=== PATIENT | male | born 1945 | race Asian ===

== ENCOUNTER 2019-01-08 12:59 | Observation (INO) | payer OTHER ==
--- OUTSIDE RECORDS SUMMARY | 2019-01-08 13:04 | XMS REPORT | Continuity of Care Document ---
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 EVAL Active 12/31/19 [facility] 18 Cerebral Active 10/01/20 Problem 05/17/2018 [facility] infarction due to 17 unspecified occlusion or stenosis of unspecified cerebral artery I67.89 Active 09/18/20 [facility] 17 CVA Active 08/23/20 [facility] 17 Unspecified 05/17/2018 [facility] symptoms and signs involving cognitive functions following cerebral infarction Dysphagia 05/17/2018 [facility] following cerebral infarction Dysphagia, 05/17/2018 [facility] oropharyngeal phase Diabetes mellitus Active Problem 05/17/2018 [facility] Hyperlipidemia Active Problem 05/17/2018 [facility] Hypertension Active Problem 05/17/2018 [facility] Seizure Resolved Problem 05/17/2018 [facility] Final: Other 09/23/2017 [facility] cerebrovascular disease OTHER Active [facility] CEREBROVASCULAR DISEASE Medications Medication Details Route Status Patient Ordering Order Source Instructions Provider Date Fenofibrate 145 145 mg=1 tab, Active [facility] MG Oral Tablet PO, Dinner, # 017 30 tab, 1 Refill(s) aspirin 81 mg 81 mg=1 tab, Active [facility] tablet, enteric PO, Daily, # 017 coated 30 tab, 1 Refill(s) oxybutynin 5 mg 5 mg=1 tab, Active [facility] oral tablet PO, TID, # 90 017 tab, 1 Refill(s) lisinopril 5 mg 5 mg=1 tab, Active [facility] oral tablet PO, Daily, # 017 30 tab, 1 Refill(s) FLUoxetine 20 mg 20 mg=1 cap, Active [facility] oral capsule PO, Daily, # 017 30 cap, 1 Refill(s) Famotidine 40 MG 40 mg=1 tab, Active [facility] Oral Tablet PO, Daily, # 017 [Pepcid] 30 tab, 1 Refill(s) donepezil 10 mg 10 mg=1 tab, Active [facility] oral tablet PO, Daily, # 017 30 tab, 1 Refill(s) Docusate Sodium 100 mg=1 cap, Active [facility] 100 MG Oral PO, Daily, # 017 Capsule [Colace] 30 cap, 1 Refill(s) Docusate Sodium 283 mg, 5 mL, Inactive [facility] 56.6 MG/ML Enema Route: [place], 017 [Enemeez] Drug form: MELLY, ONCE, Dosing Weight 67.528, kg, Start date: 09/16/17 19:00:00 [employer], Stop date: 09/16/17 19:00:00 CSTNotes: Same as Enemeez Non formulary item Milk of Magnesia 30 ml, Route: Inactive [facility] PO, Drug 017 Form: SUSP, Dosing Weight 67.528, kg, ONCE, Start date: 09/16/17 17:00:00 [employer], Stop date: 09/16/17 17:00:00 CSTNotes: (Same as: Milk of Magnesia, MOM) oxybutynin 5 mg, 1 tab, No Longer [facility] Route: PO, Active 017 Drug form: TAB, TID, Dosing Weight 67.528, kg, Start date: 09/13/17 21:00:00 [employer], Duration: 60 day, Stop date: 11/12/17 13:00:00 CSTNotes: Same as: Ditropan) Zofran 4 mg, 1 tab, No Longer [facility] Route: PO, Active 017 Drug form: TAB, Q8H, Dosing Weight 67.528, kg, PRN Nausea, Start date: 09/13/17 13:54:00 [employer], Duration: 60 day, Stop date: 11/12/17 13:53:00 CSTNotes: (Same as: Zofran) Famotidine 40 MG 40 mg, 1 tab, No Longer [facility] Oral Tablet Route: PO, Active 017 [Pepcid] Drug form: TAB, Daily, Dosing Weight 67.528, kg, Start date: 09/13/17 8:30:00 [employer], Duration: 30 day, Stop date: 10/12/17 8:30:00 [employer] Diclofenac 2 gm, 1 appl, No Longer [facility] Sodium 0.01 Route: TOP, Active 017 MG/MG Topical Drug form: Gel [Voltaren] GEL, QID, Dosing Weight 67.528, kg, PRN Pain Score 1-5, Start date: 09/12/17 18:05:00 [employer], Duration: 30 day, Stop date: 10/12/17 18:04:00 CSTNotes: Same as: Voltaren Gel Non-Formulary Item Famotidine 40 MG 40 mg, 2 tab, No Longer [facility] Oral Tablet Route: PO, Active 017 [Pepcid] Drug form: TAB, Daily, Dosing Weight 67.528, kg, Priority: NOW, Start date: 09/12/17 15:03:00 [employer], Duration: 30 day, Stop date: 10/12/17 8:30:00 CSTNotes: (Same as: Pepcid) Tums 500 mg, 1 No Longer [facility] tab, Route: Active 017 CHEW, Drug form: CHEWTAB, TID, Dosing Weight 67.528, kg, PRN Indigestion, Start date: 09/11/17 13:59:00 [employer], Duration: 30 day, Stop date: 10/11/17 13:58:00 CSTNotes: (Same As: Tums) Calcium Carbonate 500 yx=651 mg elemental calcium Dose= mg calcium carbonate ( mg elemental calcium) Diclofenac 2 gm, 1 appl, No Longer [facility] Sodium 0.01 Route: TOP, Active 017 MG/MG Topical Drug form: Gel [Voltaren] GEL, QID, Dosing Weight 67.528, kg, Start date: 09/11/17 13:00:00 [employer], Duration: 30 day, Stop date: 10/11/17 8:30:00 CSTNotes: Same as: Voltaren Gel Non-Formulary Item Aricept 10 mg, 1 tab, No Longer [facility] Route: PO, Active 017 Drug form: TAB, Daily, Dosing Weight 67.528, kg, Start date: 09/11/17 8:30:00 [employer], Duration: 60 day, Stop date: 11/09/17 8:30:00 CSTNotes: (Same as: Aricept) influenza virus 0.5 mL, No Longer [facility] vaccine, Route: IM, Active 017 inactivated Drug Form: SUSP, ONCALL, Start date: 09/10/17 18:00:00 [employer], Duration: 1 doses or times, Stop date: 09/10/17 21:00:00 CSTNotes: (Same as: Fluzone Quadrivalent, Fluarix Quadrivalent) For 3 years of age and older (0.5 mL IM) Shake well before use oxybutynin 5 mg, 1 tab, No Longer [facility] Route: PO, Active 017 Drug form: TAB, BID, Dosing Weight 67.528, kg, Start date: 09/10/17 13:00:00 [employer], Duration: 60 day, Stop date: 11/08/17 21:00:00 CSTNotes: Same as: Ditropan) Docusate Sodium 100 mg, 1 No Longer [facility] 100 MG Oral cap, Route: Active 017 Capsule [Colace] PO, Drug form: CAP, Daily, Dosing Weight 67.528, kg, Start date: 09/07/17 9:15:00 CDT, Duration: 60 day, Stop date: 11/06/17 8:30:00 CSTNotes: (Same as: Colace) (Do Not Crush) Lidocaine 1 appl, No Longer [facility] Hydrochloride Route: TOP, Active 017 0.005 MG/MG Drug Form: Topical Gel GEL, Dosing Weight 67.528, kg, Q4H, PRN Other -See Comment, Start date: 09/07/17 8:37:00 CDT, Duration: 60 day, Stop date: 11/06/17 8:36:00 [employer], cathNotes: (Same as: Xylocaine Jelly, Anestacon) oxybutynin 5 mg, 1 tab, No Longer [facility] Route: PO, Active 017 Drug form: TAB, TID, Dosing Weight 67.528, kg, Start date: 09/06/17 13:00:00 CDT, Duration: 60 day, Stop date: 11/05/17 8:30:00 CSTNotes: Same as: Ditropan) Streptococcus 0.5 mL, Inactive [facility] pneumoniae Route: IM, 017 serotype 1 Drug Form: capsular antigen INJ, ONCE, diphtheria Start date: [id number] protein 09/04/17 conjugate 17:00:00 CDT, vaccine / Stop date: Streptococcus 09/04/17 pneumoniae 17:00:00 serotype 14 CDTNotes: capsular antigen Shake well diphtheria prior to use [id number] protein (Same as: conjugate Prevnar 13) vaccine / Streptococcus pneumoniae serotype 18C capsular antigen d Lidocaine 1 appl, No Longer [facility] Hydrochloride Route: TOP, Active 017 0.005 MG/MG Dosing Weight Topical Gel 67.528, kg, QID, Start date: 09/04/17 8:30:00 CDT, Duration: 30 day, Stop date: 10/03/17 21:00:00 [employer] Lidocaine 1 appl, No Longer [facility] Hydrochloride Route: TOP, Active 017 0.005 MG/MG Drug Form: Topical Gel GEL, Dosing Weight 67.528, kg, Q4H, Start date: 09/04/17 1:00:00 CDT, Duration: 30 day, Stop date: 10/03/17 21:00:00 CSTNotes: (Same as: Xylocaine Jelly, Anestacon) Aricept 5 mg, 0.5 No Longer [facility] tab, Route: Active 017 PO, Drug form: TAB, Bedtime, Dosing Weight 67.528, kg, Start date: 09/03/17 21:00:00 CDT, Duration: 60 day, Stop date: 11/01/17 21:00:00 CSTNotes: (Same as: Aricept) Fenofibrate 160 160 mg, 1 Inactive [facility] MG Oral Tablet tab, Route: 017 PO, Drug form: TAB, Dinner, kg, Start date: 09/03/17 17:00:00 CDT, Duration: 30 day, Stop date: 10/02/17 17:00:00 [employer] fenofibrate 145 mg, 1 No Longer [facility] tab, Route: Active 017 PO, Drug form: TAB, Dinner, Start date: 09/03/17 17:00:00 CDT, Duration: 30 day, Stop date: 10/02/17 17:00:00 CSTNotes: (Same as: Tricor) Lovenox 40 mg, 0.4 No Longer [facility] mL, Route: Active 017 SUB-Q, Drug form: INJ, Daily, kg, Start date: 09/03/17 8:30:00 CDT, Duration: 30 day, Stop date: 10/02/17 8:30:00 CSTNotes: (Same as: Lovenox) Lisinopril 5 mg, 1 tab, No Longer [facility] Route: PO, Active 017 Drug form: TAB, Daily, kg, Start date: 09/03/17 8:30:00 CDT, Duration: 30 day, Stop date: 10/02/17 8:30:00 CSTNotes: (Same as: Prinivil, Zestril) Aspirin 162 MG 162 mg, 2 No Longer [facility] Enteric Coated tab, Route: Active 017 Tablet PO, Drug form: ECTAB, Daily, kg, Start date: 09/03/17 8:30:00 CDT, Duration: 30 day, Stop date: 10/02/17 8:30:00 CSTNotes: Do not crush or chew. (Same As: Ecotrin) Fluoxetine 20 mg, 1 cap, No Longer [facility] Route: PO, Active 017 Drug form: CAP, Daily, Dosing Weight 67.528, kg, Start date: 09/03/17 8:30:00 CDT, Duration: 30 day, Stop date: 10/02/17 8:30:00 CSTNotes: (Same as: Prozac, Sarafem) Nystatin 100 1 appl, No Longer [facility] UNT/MG Topical Route: TOP, Active 017 Powder QSHIFT, Drug form: PWDR, PRN Diaper Rash, Start date: 09/03/17 1:36:00 CDT, Duration: 30 day, Stop date: 10/03/17 1:35:00 CSTNotes: (Same as:Mycostatin , Nilstat) For external use only. Tylenol 650 mg, 2 No Longer [facility] tab, Route: Active 017 PO, Drug form: TAB, Q6H, Dosing Weight 67.528, kg, PRN Pain 1-3/Temp > 100.4 F, Start date: 09/03/17 0:29:00 CDT, Duration: 30 day, Stop date: 10/03/17 0:28:00 CSTNotes: Do not exceed 4 gm/day. (Same as: Tylenol) Midazolam 5 mg, 1 mL, No Longer [facility] Route: IM, Active 017 Drug form: SOLN, PRN, Dosing Weight 67.528, kg, PRN Seizure, Start date: 09/02/17 23:23:00 CDT, Duration: 30 day, Stop date: 10/02/17 22:22:00 CSTNotes: (Same as: Versed) Max dose 5 mg for patients 40 kg Levetiracetam 1,500 mg, No Longer [facility] Route: IV, Active 017 PRN, Dosing Weight 67.528, kg, PRN Seizure, Start date: 09/02/17 23:23:00 CDT, Duration: 30 day, Stop date: 10/02/17 22:22:00 CSTNotes: Same as Keppra Mix with 100 mL NS, LR or D5W MEDICATION WASTE Product Size: 500 mg Product Wasted: _0__ mg Saline Flush 10 mL, Route: No Longer [facility] 0.9% IVP, Drug Active 017 Form: INJ, Dosing Weight 67.528, kg, PRN, PRN Line Flush, Start date: 09/02/17 23:23:00 CDT, Duration: 30 day, Stop date: 10/02/17 22:22:00 CSTNotes: (Same as: BD Posiflush) Macrogol powder Macrogol No Longer [facility] powder, Active 017 13.125g, PO, Daily, Refill(s) 0 Perindopril Perindopril, No Longer [facility] 2 mg=, PO, Active 017 Daily, Refill(s) 0 Fenofibrate 160 160 mg=1 tab, No Longer [facility] MG Oral Tablet PO, Daily, 0 Active 017 Refill(s) 0.4 ML SUB-Q, Daily, No Longer [facility] Enoxaparin 0 Refill(s) Active 017 sodium 100 MG/ML Prefilled Syringe [Lovenox] Kardegic Kardegic, 160 No Longer [facility] mg=, PO, Active 017 Daily, Refill(s) 0 Allergies, Adverse Reactions, Alerts Substance Category Reaction Severity Reaction Status Date Comments Source type Reported codeine Assertion Drug Active [facility] allergy statins Assertion Drug Active [facility] allergy Immunizations Immunization Date Given Site Status Last Comments Source Updated influenza virus 09/11/2017 Left deltoid completed [place] [facility] vaccine, inactivated Results Order Name Results Value Reference Date Interpretation Comments Source Range CHEM PANEL eGFR 79 09/16 Result Comment: The eGFR is calculated using the CKD-EPI formula. In most young, healthy individuals the eGFR will be >90 mL/ min/1.73m2. The eGFR declines with age. An eGFR of 60-89 may be normal in [facility] mL/min/1.73 /2016 some populations, particularly the elderly, for whom the CKD-EPI formula has not been extensively validated. Use of the eGFR is not recommended in the following populations: m2 Individuals with unstable creatinine concentrations, including patients and those with serious co-morbid conditions. Patients with extremes in muscle mass or diet. The data above are obtained from the National Kidney Disease Education Program (NKDEP) which additionally recommends that when the eGFR is used in patients with extremes of body mass index for purposes of drug dosing, the eGFR should be multiplied by the estimated BMI. CHEM PANEL Alk Phos 63 unit/L 39 - 136 09/16 CHEM PANEL BUN 21 mg/dL 7 - 22 09/16 [facility] CHEM PANEL Creatinine 0.96 mg/dL 0.50 - 09/16 [facility] Lvl 1.40 CHEM PANEL Albumin Lvl 3.3 g/dL 3.5 - 5.0 09/16 [facility] CHEM PANEL Total Protein 6.9 g/dL 6.4 - 8.4 09/16 [facility] CHEM PANEL Bili Total 0.5 mg/dL 0.2 - 1.3 09/16 [facility] CHEM PANEL AST 64 unit/L 0 - 37 09/16 [facility] CHEM PANEL ALT 152 unit/L 0 - 65 09/16 [facility] CHEM PANEL Sodium Lvl 140 meq/L 135 - 145 09/16 [facility] CHEM PANEL Calcium Lvl 9.0 mg/dL 8.5 - 10.5 09/16 [facility] CHEM PANEL Chloride Lvl 104 meq/L 95 - 109 09/16 [facility] CHEM PANEL Potassium Lvl 4.2 meq/L 3.5 - 5.1 09/16 [facility] CHEM PANEL CO2 28 meq/L 24 - 32 09/16 [facility] CHEM PANEL Glucose Lvl 81 mg/dL 70 - 99 09/16 [facility] CHEM PANEL A/G Ratio 0.9 0.7 - 1.6 09/16 [facility] CHEM PANEL Globulin 3.6 g/dL 2.7 - 4.2 09/16 [facility] CHEM PANEL B/C Ratio 22 6 - 25 09/16 [facility] CHEM PANEL AGAP 12.2 meq/L 10.0 - 09/16 [facility] 20.0 HEMATOLOGY MCHC 34.9 g/dL 32.0 - 09/16 [facility] 36.0 HEMATOLOGY MCH 32.4 pg 27.0 - 09/16 [facility] 31.0 HEMATOLOGY RDW 12.8 % 11.5 - 09/16 [facility] 14.5 HEMATOLOGY MCV 92.8 fL 80.0 - 09/16 [facility] 94.0 HEMATOLOGY Platelet 265 K/CMM 133 - 450 09/16 [facility] HEMATOLOGY MPV 7.8 fL 7.4 - 10.4 09/16 [facility] HEMATOLOGY Hgb 15.2 g/dL 14.0 - 09/16 [facility] 18.0 HEMATOLOGY Hct 43.5 % 42.0 - 09/16 [facility] 54.0 /2016 HEMATOLOGY WBC 7.5 K/CMM 3.7 - 10.4 09/16 [facility] HEMATOLOGY RBC 4.69 M/CMM 4.70 - 09/16 [facility] 6.10 HEMATOLOGY Basophils # 0.1 K/CMM 0.0 - 0.2 09/16 [facility] HEMATOLOGY Basophils 1.0 % 0.0 - 1.0 09/16 [facility] HEMATOLOGY Segs-Bands # 4.2 K/CMM 1.5 - 8.1 09/16 [facility] HEMATOLOGY Lymphocytes # 2.0 K/CMM 1.0 - 5.5 09/16 [facility] HEMATOLOGY Eosinophils # 0.4 K/CMM 0.0 - 0.5 09/16 [facility] HEMATOLOGY Monocytes # 0.8 K/CMM 0.0 - 0.8 09/16 [facility] HEMATOLOGY Eosinophils 5.2 % 0.0 - 4.0 09/16 [facility] HEMATOLOGY Lymphocytes 27.2 % 20.0 - 09/16 [facility] 40.0 HEMATOLOGY Segs 56.5 % 45.0 - 09/16 [facility] 75.0 HEMATOLOGY Monocytes 10.1 % 2.0 - 12.0 09/16 [facility] CHEM PANEL eGFR 86 09/13 Result Comment: The eGFR is calculated using the CKD-EPI formula. In most young, healthy individuals the eGFR will be >90 mL/ min/1.73m2. The eGFR declines with age. An eGFR of 60-89 may be normal in mL/min/1.73 /2016 some populations, particularly the elderly, for whom the CKD-EPI formula has not been extensively validated. Use of the eGFR is not recommended in the following populations: m2 Individuals with unstable creatinine concentrations, including patients and those with serious co-morbid conditions. Patients with extremes in muscle mass or diet. The data above are obtained from the National Kidney Disease Education Program (NKDEP) which additionally recommends that when the eGFR is used in patients with extremes of body mass index for purposes of drug dosing, the eGFR should be multiplied by the estimated BMI. CHEM PANEL Bili Total 0.4 mg/dL 0.2 - 1.3 09/13 [facility] CHEM PANEL ALT 136 unit/L 0 - 65 09/13 [facility] CHEM PANEL CO2 27 meq/L 24 - 32 09/13 [facility] CHEM PANEL Calcium Lvl 8.9 mg/dL 8.5 - 10.5 09/13 [facility] CHEM PANEL Total Protein 6.9 g/dL 6.4 - 8.4 09/13 [facility] CHEM PANEL AST 49 unit/L 0 - 37 09/13 [facility] CHEM PANEL Alk Phos 65 unit/L 39 - 136 09/13 CHEM PANEL Glucose Lvl 79 mg/dL 70 - 99 09/13 CHEM PANEL BUN 18 mg/dL 7 - 22 09/13 CHEM PANEL Chloride Lvl 102 meq/L 95 - 109 09/13 CHEM PANEL Potassium Lvl 4.0 meq/L 3.5 - 5.1 09/13 CHEM PANEL Albumin Lvl 3.2 g/dL 3.5 - 5.0 09/13 CHEM PANEL Sodium Lvl 139 meq/L 135 - 145 09/13 CHEM PANEL Creatinine 0.89 mg/dL 0.50 - 09/13 [facility] Lvl 1.40 CHEM PANEL A/G Ratio 0.9 0.7 - 1.6 09/13 CHEM PANEL B/C Ratio 20 6 - 25 09/13 [facility] CHEM PANEL AGAP 14.0 meq/L 10.0 - 09/13 [facility] 20.0 CHEM PANEL Globulin 3.7 g/dL 2.7 - 4.2 09/13 [facility] HEMATOLOGY Segs 56.5 % 45.0 - 09/13 [facility] 75.0 HEMATOLOGY Monocytes 10.7 % 2.0 - 12.0 09/13 [facility] HEMATOLOGY Lymphocytes 26.1 % 20.0 - 09/13 [facility] 40.0 HEMATOLOGY Segs-Bands # 4.2 K/CMM 1.5 - 8.1 09/13 [facility] HEMATOLOGY Basophils 0.9 % 0.0 - 1.0 09/13 [facility] HEMATOLOGY Eosinophils 5.8 % 0.0 - 4.0 09/13 [facility] HEMATOLOGY Lymphocytes # 1.9 K/CMM 1.0 - 5.5 09/13 [facility] HEMATOLOGY Basophils # 0.1 K/CMM 0.0 - 0.2 09/13 [facility] HEMATOLOGY Eosinophils # 0.4 K/CMM 0.0 - 0.5 09/13 [facility] HEMATOLOGY Monocytes # 0.8 K/CMM 0.0 - 0.8 09/13 [facility] HEMATOLOGY Hgb 15.3 g/dL 14.0 - 09/13 [facility] 18.0 HEMATOLOGY Hct 45.6 % 42.0 - 09/13 [facility] 54.0 HEMATOLOGY MCV 94.4 fL 80.0 - 09/13 [facility] 94.0 HEMATOLOGY Platelet 270 K/CMM 133 - 450 09/13 [facility] HEMATOLOGY MPV 8.2 fL 7.4 - 10.4 09/13 [facility] HEMATOLOGY MCHC 33.6 g/dL 32.0 - 09/13 [facility] 36.0 HEMATOLOGY RDW 13.1 % 11.5 - 09/13 [facility] 14.5 HEMATOLOGY MCH 31.7 pg 27.0 - 09/13 [facility] 31.0 HEMATOLOGY RBC 4.83 M/CMM 4.70 - 09/13 [facility] 6.10 HEMATOLOGY WBC 7.5 K/CMM 3.7 - 10.4 09/13 [facility] URINE AND UA <=1.0 mg/dL 0.1 - 1.0 09/12 [facility] STOOL Urobilinogen URINE AND UA Sq Epi None Seen 09/12 [facility] URINE AND UA Nitrite Negative Negative 09/12 [facility] (09/12/17 5:44 PM) URINE AND UA Blood Negative Negative 09/12 [facility] (09/12/17 5:44 PM) URINE AND UA Bili Negative Negative 09/12 [facility] *NA* (09/12/17 5:44 PM) URINE AND UA Ketones Negative Negative 09/12 [facility] mg/dL mg/dL URINE AND UA Glucose Negative Negative 09/12 [facility] mg/dL mg/dL URINE AND UA Protein Negative Negative 09/12 [facility] mg/dL mg/dL URINE AND UA pH 6.5 5.0 - 8.0 09/12 [facility] URINE AND UA Spec Grav 1.016 <=1.030 09/12 [facility] URINE AND UA WBC 2 /HPF 0 - 5 09/12 [facility] URINE AND UA Leuk Est Negative Negative 09/12 [facility] (09/12/17 5:44 PM) URINE AND UA Mucus Few /LPF None Seen 09/12 [facility] /LPF URINE AND UA Turbidity Clear Clear 09/12 [facility] (09/12/17 5:44 PM) URINE AND UA Color Yellow Yellow 09/12 [facility] *NA* (09/12/17 5:44 PM) Esophagus Esophagus BA Modified barium swallow. 09/05 [facility] BA swallow swallow - function function Rehab DX Rehab DX INDICATION: Dysphagia. Status post stroke last month. No previous intramedullary exam. Read by: Dino Fernandez MD Dictated Date/time: 09/05/17 10:14 Electronically Signed by: Dino Fernandez MD 09/05/17 10:21 FINAL REPORT COMPARISON: None. Fluoroscopy time: 1 minute 12 seconds FINDINGS: Modified barium swallow was performed with fluoroscopic guidance provided by the radiology department with the speech pathologist present. The patient was given thin barium by teaspoon as well as self administered thin barium by cup, pudding consistency by teaspoon, and cookie coated with pudding. Normal swallowing present without laryngea l penetration or aspiration. Small amount of residual in the vallecula clears with additional swallows. IMPRESSION: No evidence for penetration or aspiration. See speech pathologist's note for additional findings and recommendations. SL: [id number] URINE AND UA Nitrite Negative Negative 09/05 [facility] (09/04/17 7:29 PM) URINE AND UA WBC null 0 - 5 09/05 [facility] URINE AND UA Leuk Est Negative Negative 09/05 [facility] (09/04/17 7:29 PM) URINE AND UA Sq Epi Occasional Few /LPF 09/05 [facility] /LPF URINE AND UA RBC 1 /HPF 0 - 2 09/05 [facility] URINE AND UA Mucus Few /LPF None Seen 09/05 [facility] STOOL /LPF URINE AND UA <=1.0 mg/dL 0.1 - 1.0 09/05 [facility] ST[facility] Urobilinogen URINE AND UA pH 6.5 5.0 - 8.0 09/05 [facility] URINE AND UA Glucose Negative Negative 09/05 [facility] mg/dL mg/dL URINE AND UA Ketones Negative Negative 09/05 [facility] mg/dL mg/dL URINE AND UA Blood Negative Negative 09/05 [facility] (09/04/17 7:29 PM) URINE AND UA Bili Negative Negative 09/05 [facility] *NA* (09/04/17 7:29 PM) URINE AND UA Color Yellow Yellow 09/05 [facility] *NA* (09/04/17 7:29 PM) URINE AND UA Turbidity Clear Clear 09/05 [facility] (09/04/17 7:29 PM) URINE AND UA Spec Grav 1.009 <=1.030 09/05 [facility] URINE AND UA Protein Negative Negative 09/05 [facility] mg/dL mg/dL URINE AND UA Blood Moderate Negative 09/03 [facility] *ABN* (09/03/17 5:20 AM) URINE AND UA 0.2 EU/dL 0.1 - 1.0 09/03 [facility] STOOL Urobilinogen URINE AND UA Leuk Est Negative Negative 09/03 [facility] (09/03/17 5:20 AM) URINE AND UA Nitrite Negative Negative 09/03 [facility] (09/03/17 5:20 AM) URINE AND UA Ketones Negative Negative 09/03 [facility] *NA* (09/03/17 5:20 AM) URINE AND UA Bili Negative Negative 09/03 [facility] *NA* (09/03/17 5:20 AM) URINE AND UA Color Yellow Yellow 09/03 [facility] *NA* (09/03/17 5:20 AM) URINE AND UA Turbidity Slight Cloudy Clear 09/03 [facility] (09/03/17 5:20 AM) URINE AND UA Spec Grav 1.010 <=1.030 09/03 [facility] URINE AND UA Glucose Negative Negative 09/03 [facility] (09/03/17 5:20 AM) URINE AND UA Protein Negative Negative 09/03 [facility] (09/03/17 5:20 AM) URINE AND UA pH 6.5 5.0 - 8.0 09/03 [facility] URINE AND UA [place] Yeast Occasional None Seen 09/03 [facility] /HPF /HPF /2016 URINE AND UA Bacteria Few /HPF None Seen 09/03 [facility] /HPF URINE AND UA Mucus Few /LPF None Seen 09/03 [facility] /LPF URINE AND UA WBC 3-5 /HPF None Seen 09/03 [facility] /HPF URINE AND UA RBC 11-20 /HPF 0 - 2 09/03 [facility] URINE AND UA Sq Epi None Seen Few 09/03 [facility] (09/03/17 5:20 AM) CHEM PANEL Magnesium Lvl 2.3 mg/dL 1.8 - 2.4 09/03 [facility] CHEM PANEL A/G Ratio 0.9 0.7 - 1.6 09/03 [facility] CHEM PANEL AGAP 11.0 meq/L 10.0 - 09/03 [facility] 20. CHEM PANEL B/C Ratio 16 6 - 25 09/03 [facility] CHEM PANEL Globulin 3.6 g/dL 2.7 - 4.2 09/03 [facility] CHEM PANEL eGFR 92 09/03 Result Comment: The eGFR is calculated using the CKD-EPI formula. In most young, healthy individuals the eGFR will be >90 mL/ min/1.73m2. The eGFR declines with age. An eGFR of 60-89 may be normal in [facility] mL/min/1.73 /2016 some populations, particularly the elderly, for whom the CKD-EPI formula has not been extensively validated. Use of the eGFR is not recommended in the following populations: m2 Individuals with unstable creatinine concentrations, including patients and those with serious co-morbid conditions. Patients with extremes in muscle mass or diet. The data above are obtained from the National Kidney Disease Education Program (NKDEP) which additionally recommends that when the eGFR is used in patients with extremes of body mass index for purposes of drug dosing, the eGFR should be multiplied by the estimated BMI. CHEM PANEL Sodium Lvl 141 meq/L 135 - 145 09/03 CHEM PANEL Potassium Lvl 4.0 meq/L 3.5 - 5.1 09/03 CHEM PANEL Glucose Lvl 95 mg/dL 70 - 99 09/03 CHEM PANEL Total Protein 6.7 g/dL 6.4 - 8.4 09/03 CHEM PANEL Creatinine 0.76 mg/dL 0.50 - 09/03 [facility] Lvl 1.40 CHEM PANEL BUN 12 mg/dL 7 - 22 09/03 CHEM PANEL Chloride Lvl 105 meq/L 95 - 109 09/03 CHEM PANEL CO2 29 meq/L 24 - 32 09/03 CHEM PANEL Calcium Lvl 8.8 mg/dL 8.5 - 10.5 09/03 CHEM PANEL Albumin Lvl 3.1 g/dL 3.5 - 5.0 09/03 CHEM PANEL Alk Phos 77 unit/L 39 - 136 09/03 CHEM PANEL ALT 83 unit/L 0 - 65 09/03 CHEM PANEL AST 54 unit/L 0 - 37 09/03 CHEM PANEL Bili Total 0.4 mg/dL 0.2 - 1.3 09/03 [facility] CHEM PANEL Phosphorus 2.9 mg/dL 2.5 - 4.5 09/03 HEMATOLOGY Basophils 0.1 % 0.0 - 1.0 09/03 [facility] HEMATOLOGY Eosinophils 4.5 % 0.0 - 4.0 09/03 [facility] HEMATOLOGY Lymphocytes 18.3 % 20.0 - 09/03 [facility] 40.0 HEMATOLOGY RBC Morph Normal 09/03 [facility] (09/03/17 5:18 AM) HEMATOLOGY Segs 68.5 % 45.0 - 09/03 [facility] 75.0 HEMATOLOGY Plt Morph See Note 1 09/03 [facility] Comment: Due (09/03/17 5:18 AM) to occassional clumps, the actual count may be slightly higher. HEMATOLOGY Monocytes # 0.8 K/CMM 0.0 - 0.8 09/03 [facility] HEMATOLOGY Monocytes 8.6 % 2.0 - 12.0 09/03 [facility] /2016 HEMATOLOGY Segs-Bands # 6.1 K/CMM 1.5 - 8.1 09/03 [facility] /2016 HEMATOLOGY Lymphocytes # 1.6 K/CMM 1.0 - 5.5 09/03 [facility] HEMATOLOGY Basophils # 0.0 K/CMM 0.0 - 0.2 09/03 [facility] /2016 HEMATOLOGY Eosinophils # 0.4 K/CMM 0.0 - 0.5 09/03 [facility] HEMATOLOGY Platelet 406 K/CMM 133 - 450 09/03 [facility] /2016 HEMATOLOGY MPV 7.9 fL 7.4 - 10.4 09/03 [facility] /2016 HEMATOLOGY RDW 12.3 % 11.5 - 09/03 [facility] 14.5 HEMATOLOGY MCHC 33.9 g/dL 32.0 - 09/03 [facility] 36.0 HEMATOLOGY WBC 8.9 K/CMM 3.7 - 10.4 09/03 [facility] /2016 HEMATOLOGY MCV 91.6 fL 80.0 - 09/03 [facility] 94.0 HEMATOLOGY Hgb 14.9 g/dL 14.0 - 09/03 [facility] 18.0 HEMATOLOGY MCH 31.1 pg 27.0 - 09/03 [facility] 31.0 HEMATOLOGY Hct 43.9 % 42.0 - 09/03 [facility] 54.0 /2016 HEMATOLOGY RBC 4.79 M/CMM 4.70 - 09/03 [facility] 6. IMMUNOLOGY Prealbumin 25.4 mg/dL 18.0 - 09/03 [facility] 45.0 /2016 LIPIDS VLDL 20 09/03 [facility] /2016 LIPIDS LDL 143 mg/dL <=99 mg/dL 09/03 [facility] (Calculated) LIPIDS Trig 100 mg/dL <=149 09/03 [facility] mg/dL /2016 LIPIDS HDL 30 mg/dL >=61 mg/dL 09/03 [facility] /2016 LIPIDS Chol 193 mg/dL <=199 09/03 [facility] mg/dL /2016 LIPIDS CHD Risk 6.43 4.00 - 09/03 [facility] 7.30 SPECIAL Hgb A1C 5.8 % <=5.6 % 09/03 [facility] Vital Signs Vital Sign Value Date Comments Source Height 162.56 cm 01/22/2018 [facility] Height 162.56 cm 01/10/2018 [facility] Heart Rate 55 01/10/2018 [facility] Systolic (mm Hg) 148 01/10/2018 [facility] Diastolic (mm Hg) 68 01/10/2018 [facility] Systolic (mm Hg) 118 09/23/2017 [facility] Diastolic (mm Hg) 72 09/23/2017 [facility] Heart Rate 60 09/23/2017 [facility] Systolic (mm Hg) 124 09/23/2017 [facility] Diastolic (mm Hg) 76 09/23/2017 [facility] Heart Rate 62 09/23/2017 [facility] Diastolic (mm Hg) 67 09/20/2017 [facility] Heart Rate 56 09/20/2017 [facility] Systolic (mm Hg) 118 09/20/2017 [facility] Respitory Rate 18 09/20/2017 [facility] Systolic (mm Hg) 134 09/20/2017 [facility] Diastolic (mm Hg) 64 09/20/2017 [facility] Heart Rate 57 09/20/2017 [facility] Heart Rate 59 09/19/2017 [facility] Respitory Rate 18 09/19/2017 [facility] Systolic (mm Hg) 122 09/19/2017 [facility] Diastolic (mm Hg) 61 09/19/2017 [facility] Respitory Rate 17 09/19/2017 [facility] Height 162.56 cm 09/13/2017 [facility] Height 162.56 cm 09/12/2017 [facility] Height 162.56 cm 09/09/2017 [facility] Weight 67.528 09/03/2017 [facility] BMI Calculated 25.55 09/03/2017 [facility] Encounters Location Location Encounter Encounter Reason Attending ADM DC Status Source Details Type Number For Provider Date Date Visit [facility] Inpatient [id number] [place] 09/03 09/20 [facility] [place] [facility] Tots [id number] Teetee 09/23 10/23 [facility] [place] /[place] [facility] Recurring [id number] Teetee 01/10 02/09 [facility] [place] [facility] [place] Outpatient [id number] KOURTNEY 01/16 Active [facility] [place] Outpatient [id number] KOURTNEY 04/17 Active [facility] [place] Procedures Procedure Code Date Perfomer Comments Source Cholecystectomy [id number] MARCO
[2019-01-08] MEDS ORDERED: ONDANSETRON 4 MG/2 ML VIAL ONE (13:08)
[2019-01-08 13:17] LABS: Protime INR 0.99
[2019-01-08 13:19] LABS: Absolute Lymphocytes (CBC) 4.9 K/uL (0.7-4.9); Absolute Monocytes 1.4 K/uL (0.1-1.3); Absolute Neutrophil 5.2 K/uL (1.8-8.0); Basophils % 0.8 % (0-1.3); Eosinophils % 4.5 % (0-4.4); Hematocrit 48.6 % (39.6-49.0); Lymphocytes % 40.1 % (15.3-44.8); MPV 8.3 fL (7.6-11.3); Monocytes % 11.5 % (3.3-12.3)
[2019-01-08 13:34] LABS: Albumin 4.1 g/dL (3.4-5.0); Bilirubin Direct 0.1 mg/dL (0-0.2); Bilirubin Total 0.4 mg/dL (0.2-1.0); Magnesium 2.8 mg/dL (1.8-2.4); Potassium 3.9 mmol/L (3.5-5.1); Protein, Total 8.1 g/dL (6.4-8.2); Troponin (Emerg Dept Use Only) 0.02 ng/mL (0.0-0.045)
--- NOTE | 2019-01-08 13:35 | RAD REPORT ---
EXAM DESCRIPTION: CT - Head Brain Wo Cont - 01/08/2019 1:26 pm CLINICAL HISTORY: Seizure COMPARISON: None. TECHNIQUE: Axial 5 mm thick images of the head were obtained without IV contrast. All CT scans are performed using dose optimization technique as appropriate and may include automated exposure control or mA/KV adjustment according to patient size. FINDINGS: No intracranial hemorrhage, mass, edema or shift of mid-line structures. No acute cortical based infarction. No acute cortical edema or sulcal effacement. There is a large area of encephaloma lacia involving substantial portions of the left frontal, temporal and parietal lobes. This is old CV A change. Ventricles are in proportion to volume loss. There is additional underlying atrophy and chr onic ischemic change. Mastoid air cells and visualized portions of the paranasal sinuses are clear. No acute bony findings. IMPRESSION: No hemorrhage, mass or acute intracranial finding. 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
[2019-01-08 14:22] LABS: Urine Blood TRACE (NEG); Urine Glucose NEGATIVE (NEG); Urine Protein 2+ (NEG); Urine Specific Gravity >1.030 (1.005-1.030)
--- NOTE | 2019-01-08 15:18 | RAD REPORT ---
EXAM DESCRIPTION: RAD - Chest Single View - 01/08/2019 2:46 pm CLINICAL HISTORY: Seizure COMPARISON: January 2018 TECHNIQUE: AP portable chest image was obtained 1431 hours . FINDINGS: Lung volumes are relatively low. No peripheral mass or consolidation. Interstitial pattern is similar to comparison. Heart and vasculature are normal. No measurable pleural effusion and no pn eumothorax. No acute bony abnormality seen. No acute aortic findings suspected. IMPRESSION: No acute cardiopulmonary process. Chest findings are similar to comparison.
--- NOTE | 2019-01-08 15:29 | ER ---
Nurse's Notes [facility] Name: Aki Dash Age: 73 yrs Sex: Male : 1945 Arrival Date: 01/08/2019 Time: 12:50 Bed 7 Private MD: Diagnosis: New onset seizure Presentation: 01/08 12:55 Presenting complaint: EMS states: from home, states, "i witnessed my is hj having a seizure for a few seconds" per EMS, pt is non verbal and on post ictal state, BGL- 124; 18g L AC; BP- 124/68; HR- 65;. Transition of care: patient was not received from another setting of care. Onset of symptoms was January 08, 2019. Risk Assessment: Do you want to hurt yourself or someone else? Patient reports no desire to harm self or others. Initial Sepsis Screen: Does the patient meet any 2 criteria? No. Patient's initial sepsis screen is negative. Does the patient have a suspected source of infection? No. Patient's initial sepsis screen is negative. Care prior to arrival: None. 12:55 Method Of Arrival: EMS: [facility] 12:55 Acuity: KARO 2 iw Triage Assessment: 13:02 General: Appears in no apparent distress. uncomfortable, Behavior is cooperative, hj appropriate for age, anxious. Pain: Denies pain. Neuro: Level of Consciousness is awake, alert, obeys commands, Oriented to. 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 - Social history:: Smoking status: Patient/guardian denies using tobacco, Patient/guardian denies using alcohol. - Ebola Screening: : Patient negative for fever greater than or equal to 101.5 degrees Fahrenheit, and additional compatible Ebola Virus Disease symptoms Patient denies exposure to infectious person Patient denies travel to an Ebola-affected area in the 21 days before illness onset. Screenin:02 Abuse screen: Denies threats or abuse. Denies injuries from another. Nutritional hj screening: No deficits noted. Tuberculosis screening: No symptoms or risk factors identified. Fall Risk None identified. Assessment: 13:05 General: Appears in no apparent distress. uncomfortable, Behavior is cooperative, hj appropriate for age, anxious. Pain: Denies pain. Neuro: Level of Consciousness is awake, alert, obeys commands, Oriented to. Cardiovascular: Capillary refill < 3 seconds Patient's skin is warm and dry. Respiratory: Airway is patent Respiratory effort is even, unlabored, Respiratory pattern is regular, symmetrical. GI: No signs and/or symptoms were reported involving the gastrointestinal system. : No signs and/or symptoms were reported regarding the genitourinary system. EENT: No signs and/or symptoms were reported regarding the EENT system. Derm: No signs and/or symptoms reported regarding the dermatologic system. Musculoskeletal: No signs and/or symptoms reported regarding the musculoskeletal system. 14:00 Reassessment: Patient and/or family updated on plan of care and expected duration. Pain hj level reassessed. 15:00 Reassessment: Patient and/or family updated on plan of care and expected duration. Pain hj level reassessed. provider in room;. 16:06 Reassessment: Patient and/or family updated on plan of care and expected duration. Pain hj level reassessed. family in room;. Vital Signs: 13:01 BP 127 / 88; Pulse 65; Resp 18; Pulse Ox 98% on R/A; Weight 77.11 kg; Height 5 ft. 6 hj in. (167.64 cm); 14:00 BP 125 / 87; Pulse 67; Resp 18; Pulse Ox 99% on R/A; hj 15:57 BP 112 / 59; Pulse 64; Resp 18; Pulse Ox 100% on R/A; hj 16:57 BP 118 / 60; Pulse 65; Resp 18; Pulse Ox 98% on R/A; hj 13:01 Body Mass Index 27.44 (77.11 kg, 167.64 cm) hj Commiskey Coma Score: 13:02 Eye Response: spontaneous(4). Verbal Response: oriented(5). Motor Response: obeys commands(6). Total: 15. ED Course: 12:50 Patient arrived in ED. hj 12:55 Ari De La O RN is Primary Nurse. hj 12:55 Andrea Clark NP is PHCP. pm1 12:55 Gary Golden MD is Attending Physician. pm1 12:58 Triage completed. hj 13:03 Arm band placed on right wrist. hj 13:03 Patient has correct armband on for positive identification. Placed in gown. Bed in low hj position. Call light in reach. Side rails up X2. Adult w/ patient. 13:04 Seizure precautions initiated. hj 13:05 Initial lab(s) drawn, by me, sent to lab. iw 13:09 Maintain EMS IV. Dressing intact. Good blood return noted. Site clean \\T\\ dry. Gauge \\T\\ iw site: 18 LAC. 13:27 CT Head Brain wo Cont In Process Unspecified. EDMS 14:08 Urine Microscopic Only Sent. hj 14:46 XRAY Chest (1 view) In Process Unspecified. EDMS 15:28 Vinay Alejandro MD is Hospitalizing Provider. pm1 16:51 No provider procedures requiring assistance completed. Patient admitted, IV remains in hj place. intact. Administered Medications: 13:24 Drug: Zofran 4 mg Route: IVP; Site: left antecubital; hj 14:08 Follow up: Response: No adverse reaction hj 16:00 Follow up: Response: No adverse reaction hj 15:55 Drug: Keppra 1000 mg Route: IV; Rate: calculated rate; Site: left antecubital; hj 15:59 Follow up: IV Status: Infusion continued upon admission Outcome: 15:28 Decision to Hospitalize by Provider. pm1 16:57 Admitted to Med/surg accompanied by nurse, family with patient, via stretcher, room hj 201, with chart, Report called to SUNSHINE Adan 16:57 Condition: stable 16:57 Instructed on the need for admit, Demonstrated understanding of instructions. 17:08 Patient left the ED. jl7 Signatures: Dispatcher [employer] EDMS Suzie Livingston RN RN Ari De La O RN RN Andrea Clark NP PHOTOENGRAVING ETCHER APPRENTICE pm1 Kris Nesbitt RN RN jl7 Corrections: (The following items were deleted from the chart) 1259 12:55 Acuity: KARO 3 hj iw
--- NOTE | 2019-01-08 15:30 | EDPHYS ---
Physician Documentation [facility] Name: Aki Dash Age: 73 yrs Sex: Male : 1945 Arrival Date: 01/08/2019 Time: 12:50 Bed 7 Private MD: ED Physician Gary Golden HPI: 01/08 13:00 This 73 yrs old Male presents to ER via EMS with complaints of Probable Seizure. pm1 13:00 The patient presents after having a single isolated seizure, that lasted 3 minute(s), pm1 the episode(s) was witnessed, by a spouse, the . Character of seizure(s): Motor activity: generalized, shaking all over, Incontinence: none, Apnea: the patient did not experience apnea, Circulation: the patient did not experience evidence of pulse disturbance. Seizure onset: just prior to arrival. Context: the seizure(s) was witnessed, by family, , occurred at home, occurred while the patient was sitting wheelchair. Contributing factors: CVA about 3 years ago. Seizure Hx: the patient has no previous seizure history. Associated injury: The patient did not suffer any apparent associated injury. EMS care: none. Current symptoms: Currently, the patient is not experiencing any symptoms, the patient feels back to baseline. The patient has not experienced similar symptoms in the past. The patient has not recently seen a physician, the patient's primary care provider is Dr. Alejandro. 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 - Social history:: Smoking status: Patient/guardian denies using tobacco, Patient/guardian denies using alcohol. - Ebola Screening: : Patient negative for fever greater than or equal to 101.5 degrees Fahrenheit, and additional compatible Ebola Virus Disease symptoms Patient denies exposure to infectious person Patient denies travel to an Ebola-affected area in the 21 days before illness onset. ROS: 13:05 Constitutional: Negative for fever, chills, and weight loss, Eyes: Negative for injury, pm1 pain, redness, and discharge, ENT: Negative for injury, pain, and discharge, Neck: Negative for injury, pain, and swelling, Cardiovascular: Negative for chest pain, palpitations, and edema, Respiratory: Negative for shortness of breath, cough, wheezing, and pleuritic chest pain, Abdomen/GI: Negative for abdominal pain, nausea, vomiting, diarrhea, and constipation, Back: Negative for injury and pain, : Negative for injury, bleeding, discharge, and swelling, MS/Extremity: Negative for injury and deformity, Skin: Negative for injury, rash, and discoloration. 13:05 Neuro: Positive for seizure activity. 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 History obtained from who is a MD. Exam: 13:05 Constitutional: This is a well developed, well nourished patient who is awake, alert, pm1 and in no acute distress. Head/Face: Normocephalic, atraumatic. Eyes: Pupils equal round and reactive to light, extra-ocular motions intact. Lids and lashes normal. Conjunctiva and sclera are non-icteric and not injected. Cornea within normal limits. Periorbital areas with no swelling, redness, or edema. ENT: Nares patent. No nasal discharge, no septal abnormalities noted. Tympanic membranes are normal and external auditory canals are clear. Oropharynx with no redness, swelling, or masses, exudates, or evidence of obstruction, uvula midline. Mucous membranes moist. Neck: Trachea midline, no thyromegaly or masses palpated, and no cervical lymphadenopathy. Supple, full range of motion without nuchal rigidity, or vertebral point tenderness. No Meningismus. Chest/axilla: Normal chest wall appearance and motion. Nontender with no deformity. No lesions are appreciated. Cardiovascular: Regular rate and rhythm with a normal S1 and S2. No gallops, murmurs, or rubs. Normal PMI, no JVD. No pulse deficits. Respiratory: Lungs have equal breath sounds bilaterally, clear to auscultation and percussion. No rales, rhonchi or wheezes noted. No increased work of breathing, no retractions or nasal flaring. Abdomen/GI: Soft, non-tender, with normal bowel sounds. No distension or tympany. No guarding or rebound. No evidence of tenderness throughout. Back: No spinal tenderness. No costovertebral tenderness. Full range of motion. Skin: Warm, dry with normal turgor. Normal color with no rashes, no lesions, and no evidence of cellulitis. MS/ Extremity: Pulses equal, no cyanosis. Neurovascular intact 13:05 Neuro: Motor: right sided weakness, baseline post CVA. Vital Signs: 13:01 BP 127 / 88; Pulse 65; Resp 18; Pulse Ox 98% on R/A; Weight 77.11 kg; Height 5 ft. 6 hj in. (167.64 cm); 14:00 BP 125 / 87; Pulse 67; Resp 18; Pulse Ox 99% on R/A; hj 15:57 BP 112 / 59; Pulse 64; Resp 18; Pulse Ox 100% on R/A; hj 16:57 BP 118 / 60; Pulse 65; Resp 18; Pulse Ox 98% on R/A; hj 13:01 Body Mass Index 27.44 (77.11 kg, 167.64 cm) Justin Coma Score: 13:02 Eye Response: spontaneous(4). Verbal Response: oriented(5). Motor Response: obeys commands(6). Total: 15. MDM: 12:58 Patient medically screened. pm1 13:05 ED course: EMS was called out for possible seizure. Arrived to the patient postictal pm1 and when they performed the ECG they were concerned that there might be a possible STEMI on ECG. Per and patient no complaints of chest pain or chest pain equivalents. 13:21 Physician consultation: Jose Osei MD was called at 13:10, was contacted at 13:21, pm1 regarding consult, Consulted ECG with Dr. Osei: No acute changes. Not a STEMI. Nonspecific ST changes and LVH. 15:20 Physician consultation: Wili Larose MD was contacted at 15:20, regarding consult, pm1 patient's condition, and will see patient tonight. Start patient on Keppra 1gm IV. 15:25 Data reviewed: vital signs. Data interpreted: Pulse oximetry: on room air is 98 %. pm1 Interpretation: normal. Counseling: I had a detailed discussion with the patient and/or guardian regarding: the historical points, exam findings, and any diagnostic results supporting the discharge/admit diagnosis, lab results, radiology results, the need for further work-up and treatment in the hospital. 15:26 Physician consultation: Vinay Alejandro MD was called at 15:27, was contacted at 15:27, pm1 regarding admission, patient's condition. 01/08 12:54 Order name: Basic Metabolic Panel; Complete Time: 13:43 01/08 12:54 Order name: CBC with Diff; Complete Time: 13:43 01/08 12:54 Order name: LFT's; Complete Time: 13:43 01/08 12:54 Order name: Magnesium; Complete Time: 13:43 01/08 12:54 Order name: NT PRO-BNP; Complete Time: 13:43 01/08 12:54 Order name: PT-INR; Complete Time: 13:43 01/08 12:54 Order name: Troponin (emerg Dept Use Only); Complete Time: 13:43 01/08 12:54 Order name: XRAY Chest (1 view); Complete Time: 15:24 01/08 12:54 Order name: EKG; Complete Time: 13:01 01/08 12:59 Order name: CT Head Brain wo Cont; Complete Time: 13:43 pm1 01/08 13:43 Order name: Urine Microscopic Only; Complete Time: 15:47 pm1 01/08 14:12 Order name: Urine Dipstick--Ancillary (enter results); Complete Time: 14:55 01/08 12:54 Order name: Cardiac monitoring; Complete Time: 13:06 01/08 12:54 Order name: EKG - Nurse/Tech; Complete Time: 13:06 01/08 12:54 Order name: IV Saline Lock; Complete Time: 13: 01/08 12:54 Order name: Labs collected and sent; Complete Time: 13:06 01/08 12:54 Order name: O2 Per Protocol; Complete Time: 13: 01/08 12:54 Order name: O2 Sat Monitoring; Complete Time: 13: 01/08 13:43 Order name: Urine Dipstick-Ancillary (obtain specimen); Complete Time: 14:07 pm1 Administered Medications: 13:24 Drug: Zofran 4 mg Route: IVP; Site: left antecubital; hj 14:08 Follow up: Response: No adverse reaction hj 16:00 Follow up: Response: No adverse reaction 15:55 Drug: Keppra 1000 mg Route: IV; Rate: calculated rate; Site: left antecubital; hj 15:59 Follow up: IV Status: Infusion continued upon admission hj Disposition: 01/09 06:58 Co-signature as Attending Physician, Gary Golden MD I agree with the assessment and kdr plan of care. Disposition: 01/08/19 15:28 Hospitalization ordered by Vinay Alejandro for Observation. Preliminary diagnosis is New onset seizure. - Bed requested for Telemetry/MedSurg (observation). - Status is Observation. jl7 - Condition is Stable. - Problem is new. - Symptoms have improved. UTI on Admission? No Signatures: Dispatcher [employer] EDMS Charlotte Rivera Kevin, MD MD [facility] Ari De La O RN RN hj Andrea Clark, YUNIER EXTRACTOR OPERATOR pm1 Kris Nesbitt RN RN jl7 Corrections: (The following items were deleted from the chart) 01/08 14:07 13:43 [place] ordered. pm1 15:47 13:21 Physician consultation: Jose Osei MD was called at 13:10, was contacted at pm1 13:21, regarding consult, Consulted ECG with Dr. Osei: No acute changes. Not a STEMI. No specific ST changes and LVH, pm1 15:55 15:28 Hospitalization Ordered by Vinay Alejandro MD for Observation. Preliminary diagnosis bd is New onset seizure. Bed requested for Telemetry/MedSurg (observation). Status is Observation. Condition is Stable. Problem is new. Symptoms have improved. UTI on Admission? No. pm1 17:08 15:55 01/08/2019 15:28 Hospitalization Ordered by Vinay Alejandro MD for Observation. jl7 Preliminary diagnosis is New onset seizure. Bed requested for Telemetry/MedSurg (observation). Status is Observation. Condition is Stable. Problem is new. Symptoms have improved. UTI on Admission? No. bd
[2019-01-08 15:31] LABS: Urine Amorphous Sediment 1+ /HPF (NONE SEEN); Urine Bacteria <20 /HPF (NONE SEEN); Urine Culture Reflex Order NOT NEEDED
[2019-01-08] MEDS ORDERED: levETIRAcetam 1,000 MG in NA CHLORIDE 0.9% 100 ML IV ONE (15:45)
--- NOTE | 2019-01-08 17:25 | EKG ---
Test Date: 2019-01-08 Test Time: 12:52:20 Rn Case Manager Hospice: [facility] MEASUREMENT RESULTS: Intervals: Rate: 78 DE: 230 QRSD: 102 QT: 404 QTc: 460 Kendrick: P: 32 DE: 230 QRS: 15 T: 130 INTERPRETIVE STATEMENTS: Sinus rhythm with 1st degree AV block Non specific ST and T abnormality Abnormal ECG Compared to ECG 01/16/2018 15:22:08 Sinus bradycardia no longer present T wave inversion less evident in anterolateral leads Electronically Signed On 01-08-19 17:24:42 CITRI[employer] ARCHITECT by Bipin Brown
[2019-01-08] MEDS ORDERED: levETIRAcetam 500 MG TAB PO SCH (21:00)
[2019-01-08] MEDS ORDERED: FENOFIBRATE 145 MG TAB PO SCH (21:00)
[2019-01-08] MEDS ORDERED: OXYBUTYNIN CHLORIDE 5 MG TAB PO SCH ×2 (21:00→23:00)
[2019-01-08] MEDS ORDERED: HOME MED 1 EA UNK (Donepezil Hcl [Donepezil Hcl] 10 MG) PO SCH (21:00)
[2019-01-08] MEDS ORDERED: PRAVASTATIN SODIUM PO SCH (21:00)
[2019-01-08] MEDS ORDERED: FENOFIBRATE 160 MG TAB PO SCH (22:00)
[2019-01-08] MEDS ORDERED: DONEPEZIL HCL 5 MG TAB PO SCH (22:00)
[2019-01-08] MEDS: levETIRAcetam 500 MG TAB PO SCH (22:32)
--- NOTE | 2019-01-08 23:08 | P.SSS ---
Patient History Date of Service: 01/08/19 Reason for admission: SEIZURES History of Present Illness: DR. DIAS HAD AND EPISODE OF TONIC CLONIC SEIZURE TODAY AT 11 OR SO. 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 HE HAS NOT RECOVERED FROM THE DENSE DAMAGE HE HAD. Allergies codeine Allergy (Verified 01/08/19 17:55) Unknown [id number] Allergy (Uncoded 01/08/19 17:55) Unknown Home Medications: Aspirin [Aspirin EC 81 MG] 81 mg PO DAILY 01/08/19 B Complex with Vitamin C [Vitamin B Complex-C] 1 tab PO DAILY 01/08/19 Donepezil HCl 10 mg PO BEDTIME 01/08/19 Fenofibrate [Tricor*] 145 mg PO BEDTIME 01/08/19 Oxybutynin Chloride 5 mg PO BEDTIME 01/08/19 Pravastatin Sodium 2 mg PO BEDTIME 01/08/19 Ubidecarenone [Co Q-10] 10 mg PO DAILY 01/08/19 Valsartan [Diovan*] 160 mg PO DAILY 01/08/19 Vit C/E/Zn/Coppr/Lutein/Zeaxan [Preservision Areds 2 Softgel] 1 cap PO DAILY 05/22 - Past Medical/Surgical History Diabetic: No -: STROKE- AUG 15 -: CLOT REMOVAL ON THE HEAD - Family History Father History Unknown: Yes Mother -: Other (see notes) Notes: CAD - Social History Smoking Status: Never smoker Alcohol use: No CD- Drugs: No Caffeine use: No Place of Residence: Home Review of Systems 10-point ROS is otherwise unremarkable General: Weakness Neurological: Weakness, Confusion, As per HPI Physical Examination - Vital Signs Temperature: 98.2 F Blood Pressure: 128/58 Pulse: 69 Respirations: 20 Pulse Ox (%): 95 - Physical Exam General: Alert, Mild distress HEENT: Atraumatic, PERRLA, Mucous membr. moist/pink, EOMI, Sclerae nonicteric Neck: Supple, 2+ carotid pulse no bruit, No LAD, Without JVD or thyroid abnormality Respiratory: Clear to auscultation bilaterally, Normal air movement Cardiovascular: Regular rate/rhythm, Normal S1 S2 Gastrointestinal: Normal bowel sounds, No tenderness Musculoskeletal: No tenderness Integumentary: No rashes Neurological: Abnormal strength (RIGHT HEMIPLEGIA, DENSE.) Lymphatics: No axilla or inguinal lymphadenopathy - Studies Laboratory Data (last 24 hrs) 01/08/19 13:00: PT 11.7, INR 0.99 01/08/19 13:00: WBC 12.2 H, Hgb 16.4, Hct 48.6, Plt Count 360 01/08/19 13:00: Sodium 141, Potassium 3.9, BUN 24 H, Creatinine 1.47 H, Glucose 105, Magnesium 2.8 H, Total Bilirubin 0.4, AST 30, ALT 46, Alkaline Phosphatase 62 - Diagnosis (Problem(s)) (1) Hemiplegia affecting right dominant side Current Visit: Yes Status: Chronic Plan: HE IS THE SAME FOR LONG DUARATION NOW. RESUME ANTIPLATLET AGENT. Qualifiers: Hemiplegia type: spastic Hemiplegia etiology: late effect of cerebrovascular disease Cerebrovascular disease type: cerebral infarction Qualified Code(s): I69.351 - Hemiplegia and hemiparesis following cerebral infarction affecting right dominant side (2) Seizure as late effect of cerebrovascular accident (CVA) Current Visit: Yes Status: Acute Plan: KEPPRA IV INFUSION GIVEN. HE WILL BE ON KEPPRA 750 MG PO BID FROM NOW ON. - Disposition Disposition: ROUTINE DISCHARGE
--- NOTE | 2019-01-09 01:33 | CON ---
Date of Consultation: 01/08/2019 Reason: New onset seizure. 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 He lives with his . He needs assistance with most activities of daily living. He has a residual aphasia with right hemiparesis. He was in his usual state of health until today when he suddenly had an unprovoked witnessed generalized tonic-clonic seizure lasting about 3 to 4 minutes. He was confused and postictal. EMS was summoned , brought to the emergency department. CT scan of the brain demonstrates old MCA stroke, no acute abnormalities. Chest x-ray was clear. EKG had some questionable ST abnormalities. No evidence for acute myocardial infarct fortunately. CBC, white count 12.2, otherwise normal. CO2 16 consistent with a generalized seizure. Creatinine 1.4. It was ill advised to send the patient home. Given the abrupt change in the neurological status, he was admitted; as I know the patient, I was consulted. Past Medical History: Hypertension, prior stroke, hyperlipidemia. Allergies: STATINS, CODEINE. Social History: . Does not drink. Does not smoke. Not ambulatory in the community. He does not drive. Needs assistance with transfers and activities of daily living. Family History: Noncontributory. Review of Systems: General: Good health. Eyes: Has vision loss on the right, chronic. Ears, Nose, Throat: No dysphagia. Cardiovascular: Hypertension. Pulmonary: Negative. GI: Negative. : Negative. Musculoskeletal: Right hemiparesis. Neurologic: As noted. Psychiatric: Negative. Endocrine: Negative. Hematologic: Negative. Physical Examination: Vital Signs: 98.4, 58, 16, 120/58. General: He is a pleasant gentleman, lying in bed, in no distress. Awake, alert. Heart: Sinus rhythm. No carotid bruits. Lungs: Clear. Abdomen: Soft. Bowel sounds present. The patient has a very significant nonfluent aphasia. Can count fingers and say 1 word sentences. Pupils reactive. Ocular motion full. Right hemianopia to confrontation and double simultaneous stimulation. Face symmetric. Tongue midline. Soft palate elevates bilaterally. No tongue laceration. Neuro: Examination of his extremities reveals a spastic right hemiparesis, worse in the arm than the leg, 2/5 in the arm, 3-/5 in the leg. Tone increased on the right, hyperpathic on the right. Sensation decreased on the right. In addition of the hyperpathia right-sided hyperreflexia, upgoing toe on the right , 1/4 on the left with downgoing toe on the left. No zciswp-yyzq-wkzgoh ataxia on the right. Impression: New onset seizure, likely from the prior stroke. Plan: Would continue the Keppra, given his weight 167, 750 twice daily is fairly reasonable dose moving forward goal Keppra level 20 to 40. Check EEG and brain MRI. Check a Keppra level tomorrow prior to discharge, that level would not be back in a timely fashion. It is a send out. He can follow up in the office in few weeks if he remains stable. Thank you for the consult. We will continue to follow with you. DIOGO Voice ID: [id number] Report ID: [id number] NIKKI
[2019-01-09 06:25] LABS: Absolute Lymphocytes (CBC) 2.1 K/uL (0.7-4.9); Absolute Monocytes 1.2 K/uL (0.1-1.3); Basophils % 0.7 % (0-1.3); Eosinophils % 3.3 % (0-4.4); Hematocrit 43.2 % (39.6-49.0); Lymphocytes % 21.8 % (15.3-44.8); MPV 8.2 fL (7.6-11.3); Monocytes % 12.1 % (3.3-12.3)
[2019-01-09] MEDS ORDERED: ASPIRIN EC 81 MG TAB PO SCH ×2 (09:00)
[2019-01-09] MEDS ORDERED: VALSARTAN 160 MG TAB PO SCH (09:00)
[2019-01-09] MEDS ORDERED: COENZYME Q10- 200 MG CAP PO SCH (09:00)
[2019-01-09] MEDS ORDERED: VALSARTAN 80 MG TAB PO SCH (09:00)
[2019-01-09] MEDS ORDERED: UBIDECARENONE 10 MG PO SCH (09:00)
[2019-01-09] MEDS ORDERED: [UNRECOGNIZED DRUG - OTHER] PO SCH (09:00)
[2019-01-09] MEDS: levETIRAcetam 500 MG TAB PO SCH (10:44)
--- NOTE | 2019-01-09 13:25 | EEG ---
CHART: [id number] TEST ID#: [id number] DATE OF STUDY: 01/08/19 THE EEG WAS RECORDED PORTABLE IN THE PATIENTS ROOM ON A 17 CHANNEL MACHINE. ELECTRODES WERE APPLIED IN THE USUAL MANNER USING THE INTERNATIONAL 10-20 SYSTEM. THE WAKING BACKGROUND RHYTHM IN THIS RECORD CONSISTS OF WELL DEVELOPED AND WELL ORGANIZED WAVES OF 8.5 HZ., MAXIMAL IN THE POSTERIOR HEAD REGIONS WHICH ATTENUATE NORMALLY WITH EYE OPENING. LOW-VOLTAGE 18-22 HZ ACTIVITY IS EXPRESSED IN THE FRONTAL REGIONS. THERE ARE NO FOCAL OR LATERALIZING FEATURES. NO EPILEPTIFORM ACTIVITY APPEARS. SLEEP DID NOT OCCUR. HYPERVENTILATION WAS NOT PREFORMED. PHOTIC STIMULATION PRODUCED POOR DRIVING BILATERALLY. IMPRESSION: NORMAL EEG FOR THE AGE OF THE PATIENT IN WAKE, AND DROWSY STATE.
--- NOTE | 2019-01-09 17:18 | RAD REPORT ---
EXAM DESCRIPTION: MRI - Brain Wo Cont - 01/09/2019 4:53 pm CLINICAL HISTORY: Seizure, prior left cerebral hemisphere CVA COMPARISON: CT head January 08, MRI October 2017 TECHNIQUE: Sagittal T1-weighted images were obtained along with axial PD, heavily T2-weighted and T2 -FLAIR images. Axial DWI and ADC mapping sequences were also obtained along with coronal heavily T2-w eighted images. FINDINGS: No acute infarction changes are present. There is no hemorrhage or mass lesion. No edema o r shift of midline structures. Encephalomalacia involves a substantial portion of the left cerebral h emisphere. Findings match the CT study. Scattered chronic ischemic changes are present. Patient has a dditional mild underlying atrophy. Signal voids are seen as a normal finding in the major intracrania l vessels. No globe or orbital content abnormality. Mastoid air cells and paranasal sinuses are clear. IMPRESSION: No acute infarction changes are present. No hemorrhage, mass or acute intracranial findi ng identifiable. Encephalomalacia from old CVA involving the majority of the left cerebral hemisphere. This matches th e CT study. Mild atrophy and mild chronic ischemic change.
[2019-01-09] MEDS ORDERED: ATORVASTATIN 10 MG TAB PO SCH (21:00)
--- NOTE | 2019-01-14 11:14 | EEG ---
CHART: [id number] TEST ID#: [id number] DATE OF STUDY: 01/09/2019 THE EEG WAS RECORDED PORTABLE IN THE PATIENTS ROOM ON A 17 CHANNEL MACHINE. ELECTRODES WERE APPLIED IN THE USUAL MANNER USING THE INTERNATIONAL 10-20 SYSTEM. THE WAKING BACKGROUND RHYTHM IN THIS RECORD CONSISTS OF WELL DEVELOPED AND WELL ORGANIZED WAVES OF 9.5-10 HZ., MAXIMAL IN THE POSTERIOR HEAD REGIONS WHICH ATTENUATE NORMALLY WITH EYE OPENING. LOW-VOLTAGE 18-22 HZ ACTIVITY IS EXPRESSED IN THE FRONTAL REGIONS. THERE ARE NO FOCAL OR LATERALIZING FEATURES. NO EPILEPTIFORM ACTIVITY APPEARS. SLEEP OCCURRED NATURALLY. IN ADDITION NORMAL SLEEP PATTERNS ARE PRESENT. PHOTIC STIMULATION PRODUCED FAIR DRIVING BILATERALLY. IMPRESSION: NORMAL EEG FOR THE AGE OF THE PATIENT IN WAKE, DROWSINESS AND SLEEP.
== END 2019-01-09 18:13 | disposition home or self-care (01) ==
LOC: ER 12:59 → ERHOLD 15:36 → 2ND 16:49
PROVIDERS: ADMIT Internal Medicine; ATTEND Internal Medicine
DX: I69.398 Other sequelae of cerebral infarction (principal); R56.9 Unspecified convulsions; I69.320 Aphasia following cerebral infarction; I69.351 Hemiplegia and hemiparesis following cerebral infarction affecting right dominant side; Z79.82 Long term (current) use of aspirin; I10 Essential (primary) hypertension; E78.5 Hyperlipidemia, unspecified
CPT/HCPCS: 93005; 95819; 85025 ×2; 80048 ×2; 36415; 83735; 85610; 80076; 84484; 80177; 83880; 70450; 71045; 70551; 96375; 96374; 99285; J1953; J2405; G0378 ×2; 81003; 81015

== ENCOUNTER 2024-12-30 10:22 | Emergency (ER) | payer OTHER ==
[2024-12-30 11:20] LABS: Absolute Basophils 0.1 K/uL (0-0.5); Absolute Eosinophils 0.2 K/uL (0-0.5); Absolute Lymphocytes (CBC) 1.4 K/uL (0.7-4.9); Absolute Monocytes 0.9 K/uL (0.1-1.3); Absolute Neutrophil 5.5 K/uL (1.8-8.0); Basophils % 0.7 % (0-1.3); Hematocrit 48.3 % (39.6-49.0); Hemoglobin 16.8 g/dL (13.6-17.9); Lymphocytes % 17.5 % (15.3-44.8); MCHC 34.7 g/dL (32.0-36.0); MCV 95.2 fL (80-100); MPV 8.1 fL (7.6-11.3); Monocytes % 11.4 % (3.3-12.3); Neutrophils % 67.4 % (41.7-73.7); Platelets 253 thou/uL (152-406); RBC Red Blood Cell Count 5.07 M/uL (4.33-5.43); Red Cell Distribution Width 13.3 % (12.1-15.2)
[2024-12-30 11:47] LABS: ALT/SGPT 75 U/L (16-61); AST/SGOT 36 U/L (15-37); Albumin 3.9 g/dL (3.4-5.0); Alkaline Phosphatase 63 U/L (45-117); Anion Gap 7.7 mEq/L (5.0-15.0); BUN Blood Urea Nitrogen 21 mg/dL (7-18); Bicarbonate 30 mEq/L (21-32); Bilirubin Total 0.5 mg/dL (0.2-1.0); Glomerular Filtration Rate 65 ml/min (=/>90); Glucose Level 90 mg/dL (74-106); Potassium 4.7 mEq/L (3.5-5.1); Protein, Total 7.9 g/dL (6.4-8.2); Sodium Level 140 mEq/L (136-145); Troponin High Sensitivity 12.4 pg/mL (<58.9)
[2024-12-30 11:50] LABS: Bilirubin Direct < 0.2 mg/dL (0-0.2); Bilirubin Indirect, Calculated 0.3 mg/dL (0.2-0.8)
--- NOTE | 2024-12-30 12:17 | RAD REPORT ---
EXAMINATION:Lower Extremity Artery Uni Ltd CLINICAL INDICATION: Male, 79 years old. [facility] MAIN lower SWELLING Bed Name: 3 TECHNIQUE: Arterial duplex ultrasound was performed of the Right lower extremity with real-time, colo r-flow, and spectral wave Doppler evaluation. COMPARISON: 12/04/2018 FINDINGS: Mild plaque throughout the evaluated arterial system. Biphasic waveforms are seen throughout the price luated Right lower extremity arterial system, to the level of the dorsalis pedis artery. No other suspicious findings. IMPRESSION: Mild peripheral vascular disease throughout the right lower extremity..
--- NOTE | 2024-12-30 12:29 | RAD REPORT ---
EXAMINATION: US RIGHT LOWER EXTREMITY VENOUS DOPPLER CLINICAL INDICATION: [facility] MAIN lower SWELLING Bed Name: [id number] Y TECHNIQUE: Complete bilateral duplex sonography of the RIGHT lower extremity veins was performed. The examination included compression for vein patency, color Doppler imaging and flow augmentation in response to distal compression of the distal external iliac, common femoral, femoral, popliteal, tibi al, and great and small saphenous veins. COMPARISON: 12/04/2018 FINDINGS: Duplex sonography testing of the veins of the LEFT lower extremity was performed. Color flow imaging shows all veins to be compressible with suhl-ee-yfju color filling. Pulsatile and phasic flow is present within all lower extremity deep and superficial veins examined. IMPRESSION: No evidence of deep venous thrombosis.
--- NOTE | 2024-12-30 13:46 | RAD REPORT ---
EXAM: CTA of the abdomen and pelvis with bilateral runoff HISTORY: Chest pain and back pain RT LEG PVD COMPARISON: None TECHNIQUE: Multiple contiguous axial images were obtained a CTA of the abdomen and pelvis including b ilateral runoffs with contrast per angiographic protocol. This involves 3D reconstructions, MIPs, volume rendered images and/or shaded surface rendering. One or more of the following dose reduction t echniques were used: Automated exposure control, adjustment of the mA and/or kV according to patient size, and/or iterative reconstruction. Unless otherwise specified, incidental findings do not require dedicated imaging follow-up. Sagittal and coronal 3-D MIP reformats were performed. FINDINGS: DESCENDING THORACIC AORTA: Included infeior aspect demonstrates normal caliber without evidence of d issection or aneurysmal dilatation. ABDOMINAL AORTA: 3.6 cm infrarenal abdominal aortic aneurysm is present, fusiform type. CELIAC TRUNK: Small amount of hard plaque is seen at the origin of the celiac axis. SMA: Smaller plaque is seen origin of the SMA. MANE: Patent RENAL ARTERIES: Mild ostial hard plaquing at the origins of both renal arteries. 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 No significant pelvic outflow stenosis. Mild plaquing seen in both common femoral arteries. BILATERAL RUNOFFS: No significant flow abnormalities seen bilaterally. Three-vessel runoff is seen bi laterally. Included solid organs within the field of view are grossly unremarkable. Included bowel and intrapelv ic structures grossly unremarkable within the giyas-pr-ymto. Wsfh-jq-kvsnikzc lumbar degenerative changes. No worrisome bony finding. IMPRESSION: 3.6 infrarenal abdominal aortic aneurysm as detailed. For management of fusiform aneurysmal abdominal aortas: Recommend follow-up every 2 years. Note: For AAA enlargement of > 0.5 cm in 6 months or > 1 cm in 1 year, recommend vascular consultat ion. References: J Am Anette Radiol 2013; 10(10):789-794; J Vasc Surg. 2018; 67:2-77 Aneurysm noted right common iliac artery and right internal iliac artery without acute finding. No significant flow abnormality bilateral runoffs. Three-vessel runoff seen to both lower extremities .
--- NOTE | 2024-12-30 14:12 | EDPHYS ---
Physician Documentation [facility] Name: Aki Dash Age: 79 yrs Sex: Male : 1945 Arrival Date: 12/30/2024 Time: 10:22 Bed 13 Private MD: ED Physician Demario Martínez HPI: 12/30 15:46 This 79 yrs old Male presents to ER via Wheelchair with complaints of Leg rt Swelling, Feet Swelling. 15:46 Patient presents to the ED with a right sided leg swelling for the past several days, rt noted that his right foot was blue this morning, went to Dr. Orlando wash his office, sent to the ED for evaluation for an acute arterial occlusion. Denies any pain to the area. Denies other acute complaints, symptoms are moderate in severity, no other aggravating or alleviating factors.. Historical: - Allergies: 10:55 Codeine; db 10:55 Yjdazin-Usc-Mpx Reductase Inhibitors; db - PMHx: 10:55 cerebral thrombectomy; CVA (20170815); Right sided weakness; db - Immunization history:: Adult Immunizations unknown. - Infectious Disease History:: Denies. - Social history:: Smoking status: Patient denies any tobacco usage or history of. - Family history:: not pertinent. ROS: 15:46 Constitutional: Negative for fever, chills, and weight loss, Cardiovascular: Negative rt for chest pain, palpitations, and edema, Respiratory: Negative for shortness of breath, cough, wheezing, and pleuritic chest pain, Abdomen/GI: Negative for abdominal pain, nausea, vomiting, diarrhea, and constipation, Neuro: Negative for headache, weakness, numbness, tingling, and seizure, Psych: Negative for depression, anxiety, suicide ideation, homicidal ideation, and hallucinations, 15:46 MS/extremity: Positive for Swelling, discoloration, 15:46 Skin: Positive for Discoloration, Exam: 15:46 Constitutional: This is a well developed, well nourished patient who is awake, alert, rt and in no acute distress. Chest/axilla: Normal chest wall appearance and motion. Nontender with no deformity. No lesions are appreciated. Cardiovascular: Regular rate and rhythm with a normal S1 and S2. No gallops, murmurs, or rubs. Normal PMI, no JVD. No pulse deficits. Respiratory: Lungs have equal breath sounds bilaterally, clear to auscultation and percussion. No rales, rhonchi or wheezes noted. No increased work of breathing, no retractions or nasal flaring. Abdomen/GI: Soft, non-tender, with normal bowel sounds. No distension or tympany. No guarding or rebound. No evidence of tenderness throughout. 15:46 ECG was reviewed by the Attending Physician. 15:46 Musculoskeletal/extremity: Right foot is cool, cyanotic, difficult to palpate dorsalis pedis pulse, no focal areas of tenderness. Vital Signs: 10:53 BP 128 / 62; Pulse 42; Resp 18; Pulse Ox 98% on R/A; Weight 71.67 kg; Height 5 ft. 3 db in. ; 11:56 BP 138 / 53; Pulse 43; Resp 18; Pulse Ox 100% ; kj2 13:00 BP 135 / 72; Pulse 45; Resp 18; Pulse Ox 100% on R/A; kj2 14:00 BP 132 / 76; Pulse 48; Resp 18; Temp 98; Pulse Ox 100% on R/A; kj2 10:53 Body Mass Index 27.99 (71.67 kg, 160.02 cm) db MDM: 10:51 Medical Screening Exam initiated rt 15:49 Differential Diagnosis Arterial occlusion, Raynaud's phenomenon, discoloration, rash. rt Data reviewed: vital signs, nurses notes, lab test result(s), EKG, radiologic studies. Consideration of Admission/Observation Escalation of care including admission/observation considered. Management of patient was discussed with the following: Deck Specialist: Discussed with Dr. Morrison regarding ultrasound findings, he recommended CT scan, following the, discussed CT scan findings with him, recommends the patient be started on Eliquis, Lasix and he will see the patient on Saturday.. Independent interpretation of the following test(s) in the Emergency Department CT Scan: My interpretation is No acute occlusion seen on interpretation of CT scan images. Care significantly affected by the following chronic conditions: Previous CVA with right-sided hemiparesis. Counseling: I had a detailed discussion with the patient and/or guardian regarding the historical points, exam findings, and any diagnostic results supporting the discharge/admit diagnosis, lab results, radiology results, the need for outpatient follow up, to return to the emergency department if symptoms worsen or persist or if there are any questions or concerns that arise at home. Response to treatment: There is no appreciated change of the patient's symptoms at this time. 12/30 10:56 Order name: Basic Metabolic Panel; Complete Time: 12:02 rt 12/30 10:56 Order name: CBC with Diff; Complete Time: 12:02 rt 12/30 10:56 Order name: LFT's; Complete Time: 12:02 rt 12/30 10:56 Order name: Troponin HS; Complete Time: 12:02 rt 12/30 10:56 Order name: Extremity Venous Uni Ltd US; Complete Time: 12:30 rt 12/30 10:56 Order name: Lower Extremity Artery Uni Ltd US; Complete Time: 12:30 rt 12/30 12:38 Order name: CT Pelvis Angio; Complete Time: 13:48 rt 12/30 12:42 Order name: Lower Ext Angio; Complete Time: 13:48 EDMS 12/30 12:42 Order name: Abdomen Angio; Complete Time: 13:48 EDMS 12/30 10:56 Order name: Cardiac monitoring; Complete Time: 12:01 rt 12/30 10:56 Order name: EKG - Nurse/Tech; Complete Time: 11:22 rt 12/30 10:56 Order name: IV Saline Lock; Complete Time: 11:14 rt 12/30 10:56 Order name: Labs collected and sent; Complete Time: 11:14 rt 12/30 10:56 Order name: O2 Per Protocol; Complete Time: 12:01 rt 12/30 10:56 Order name: O2 Sat Monitoring; Complete Time: 12:01 rt EC:46 Rate is 41 beats/min. Rhythm is regular, Sinus bradycardia with No ectopy. QRS [place] is rt Normal. MS interval is normal. QRS interval is normal. QT interval is normal. No Q waves. Clinical impression: NSR w/ Non-specific ST/T Changes. Administered Medications: No medications were administered Disposition Summary: 12/30/24 14:12 Discharge Ordered Notes: Location: Home rt Problem: new rt Symptoms: are unchanged rt Condition: Stable rt Diagnosis - Aneurysm of right iliac artery rt Followup: rt - With: Private Physician - When: 01/04/2025 - Reason: Discharge Instructions: - Discharge Summary Sheet rt - Peripheral Vascular Disease rt Forms: - Medication Reconciliation Form rt - Antibiotic Education rt - Prescription Opioid Use rt - Patient Portal Instructions rt - Leadership Thank You Letter rt Prescriptions: - Eliquis 5 mg Oral tablet - take 1 tablet ORAL route 2 times per day; 60 tablet; Refills: 0, Product rt Selection Permitted - Lasix 20 mg Oral tablet - take 1 tablet ORAL route once daily; 30 tablet; Refills: 0, Product Selection rt Permitted Signatures: Dispatcher [employer] Aleena Lou RN RN Demario Montano MD MD rt Corrections: (The following items were deleted from the chart) 10:56 10:56 BASIC METABOLIC PANEL+C.LAB.BRZ ordered. EDMS EDMS 10:56 10:56 CBC+H.LAB.BRZ ordered. EDMS EDMS 10:56 10:56 HEPATIC FUNCTION+C.LAB.BRZ ordered. EDMS EDMS 10:56 10:56 Troponin High Sensitivity+C.LAB.BRZ ordered. EDMS EDMS
--- NOTE | 2024-12-30 14:12 | ER ---
Nurse's Notes [facility] [place] Name: Aki Dash Age: 79 yrs Sex: Male : 1945 Arrival Date: 12/30/2024 Time: 10:22 Bed 13 Private MD: Diagnosis: Aneurysm of right iliac artery Presentation: 12/30 10:53 Chief complaint: Spouse and/or significant other states: PATIENT WITH RIGHT FOOT db SWELLING AND DISCOLORATION STARTED THIS AM. DENIES ANY OTHER SYMPTOMS SENT BY PCP. HX OF STROKE UNABLE TO WALK MINIMAL TALKING. UNDERSTANDS [place]. IS A [employer]. Coronavirus screen: Client denies travel out of the [place] in the last 14 days. At this time, the client does not indicate any symptoms associated with coronavirus-19. Ebola Screen: Patient negative for fever greater than or equal to 101.5 degrees Fahrenheit, and additional compatible Ebola Virus Disease symptoms Patient denies exposure to infectious person. Patient denies travel to an Ebola-affected area in the 21 days before illness onset. No symptoms or risks identified at this time. Initial Sepsis Screen: Does the patient meet any 2 criteria? No. Patient's initial sepsis screen is negative. Initial Sepsis Screen: Does the patient have a suspected source of infection? No. Patient's initial sepsis screen is negative. Risk Assessment: Do you want to hurt yourself or someone else? Patient reports no desire to harm self or others. 10:53 Method Of Arrival: Wheelchair db 10:53 Acuity: KARO 3 db 12:03 Onset of symptoms was December 30, 2024. kj2 Triage Assessment: 10:55 General: Appears in no apparent distress. comfortable, Behavior is calm, cooperative. db Pain: Denies pain. Neuro: Level of Consciousness is awake, alert, obeys commands, Oriented to person, place, time, situation. Derm: Skin is PURPLE. Historical: - Allergies: 10:55 Codeine; db 10:55 Mgrigbu-Hhw-Nwb Reductase Inhibitors; db - PMHx: 10:55 cerebral thrombectomy; CVA (20170815); Right sided weakness; db - Immunization history:: Adult Immunizations unknown. - Infectious Disease History:: Denies. - Social history:: Smoking status: Patient denies any tobacco usage or history of. - Family history:: not pertinent. Screenin:01 [facility] ED Fall Risk Assessment (Adult) History of falling in the last 3 months, kj2 including since admission No falls in past 3 months (0 pts) Confusion or Disorientation No (0 pts) Intoxicated or Sedated No (0 pts) Impaired Gait Yes (1 pt) Mobility Assist Device Used Yes (1 pt) Altered Elimination No (0 pt) Score/Fall Risk Level 3 or more points = High Risk Maintained a safe environment, Hourly rounding (assess needs \T\ fall precautionary measures) done. Abuse screen: Denies threats or abuse. Denies injuries from another. Nutritional screening: No deficits noted. Tuberculosis screening: No symptoms or risk factors identified. Assessment: 11:58 General: Appears in no apparent distress. Behavior is calm, cooperative. Pain: Denies kj2 pain. Neuro: Level of Consciousness is awake, alert, obeys commands, Oriented to person, place, situation. Cardiovascular: right foot discolration/light blue to parts of foot. Respiratory: Airway is patent Respiratory effort is unlabored. GI: No signs and/or symptoms were reported involving the gastrointestinal system. : No signs and/or symptoms were reported regarding the genitourinary system. 13:00 Reassessment: Patient appears in no apparent distress at this time. Patient and/or kj2 family updated on plan of care and expected duration. Pain level reassessed. Patient is alert, oriented x 3, equal unlabored respirations, skin warm/dry/pink. 14:00 Reassessment: Patient appears in no apparent distress at this time. Patient and/or kj2 family updated on plan of care and expected duration. Pain level reassessed. Patient is alert, oriented x 3, equal unlabored respirations, skin warm/dry/pink. Vital Signs: 10:53 BP 128 / 62; Pulse 42; Resp 18; Pulse Ox 98% on R/A; Weight 71.67 kg; Height 5 ft. 3 db in. ; 11:56 BP 138 / 53; Pulse 43; Resp 18; Pulse Ox 100% ; kj2 13:00 BP 135 / 72; Pulse 45; Resp 18; Pulse Ox 100% on R/A; kj2 14:00 BP 132 / 76; Pulse 48; Resp 18; Temp 98; Pulse Ox 100% on R/A; kj2 10:53 Body Mass Index 27.99 (71.67 kg, 160.02 cm) db ED Course: 10:24 Patient arrived in ED. mr 10:28 Demario Martínez MD is Attending Physician. rt 10:55 Triage completed. db 10:56 Arm band placed on Patient placed in waiting room. db 11:14 Basic Metabolic Panel Sent. cc6 11:14 CBC with Diff Sent. cc6 11:14 LFT's Sent. cc6 11:14 Troponin HS Sent. cc6 11:14 Initial lab(s) drawn, by me, sent to lab. Inserted saline lock: 20 gauge in left cc6 antecubital area, using aseptic technique. Blood collected. Flushed with 10 mL NS. 11:22 EKG done, by ED staff, reviewed by Demario Martínez MD. cc6 11:37 Lower Extremity Artery Uni Ltd US In Process Unspecified. EDMS 11:49 Aletha Blevins, RN is Primary Nurse. kj2 12:02 Patient has correct armband on for positive identification. Provided Education on: call kj2 light. 12:03 No provider procedures requiring assistance completed. kj2 12:06 Extremity Venous Uni Ltd US In Process Unspecified. EDMS 13:19 CT Pelvis Angio In Process Unspecified. EDMS 13:19 Lower Ext Angio In Process Unspecified. EDMS 13:19 Abdomen Angio In Process Unspecified. EDMS 14:41 IV discontinued, intact, bleeding controlled, No redness/swelling at site. Pressure kj2 dressing applied. Administered Medications: No medications were administered Medication: 12:02 VIS not applicable for this client. kj2 Outcome: 14:12 Discharge ordered by MD. rt 14:41 Discharged to home via wheelchair, kj2 14:41 Condition: stable 14:41 Discharge instructions given to patient, family, Instructed on discharge instructions, Demonstrated understanding of instructions, follow-up care, medications, Prescriptions given X 2, 14:42 Patient left the ED. kj2 Signatures: Dispatcher [employer] EDMS Melissa Garsia, Reg Reg BrunoAleena, SUNSHINE RN Demario Montano MD MD rt Aletha Blevins, RN RN kj2 Megan Aguilera cc6
[2024-12-30 15:08] VITALS: O2SAT 100
[2024-12-30 15:12] VITALS: BP 132/76; TEMP 98
--- NOTE | 2024-12-31 16:47 | EKG ---
Test Date: 2024-12-30 Test Time: 11:20:01 [employer] Supervisor: VIVIAN MEASUREMENT RESULTS: Intervals: Rate: 41 [place]: 238 QRSD: 108 QT: 504 QTc: 415 [place]: P: 29 IL: 238 QRS: 10 T: 145 INTERPRETIVE STATEMENTS: Marked sinus bradycardia with 1st degree AV block Abnormal ECG Compared to ECG 01/08/2019 12:52:20 ST (T wave) deviation now present Sinus rhythm no longer present T-wave abnormality no longer present Electronically Signed On 12-31-24 16:45:04 FIRE CONTROL TECHNICIAN B by Ender Ardon
== END 2024-12-30 14:42 | disposition home or self-care (01) ==
LOC: ER 10:22
DX: I72.3 Aneurysm of iliac artery (principal); I69.351 Hemiplegia and hemiparesis following cerebral infarction affecting right dominant side
CPT/HCPCS: 85025; 80048; 36415; 80076; 84484; 73706; 72191; 74175; 93926; 93971; Q9967; 75635; 93005; 99284